=== PATIENT | male | born 1985 | race Caucasian/White ===

== ENCOUNTER 2020-09-07 10:51 | Emergency (ER) | payer SELFPAY ==
[~2020-09-07] VITALS: Wt 77.1 kg
[2020-09-07] MEDS ORDERED: Motrin,Rufen800 MG PO (14:07)
== END 2020-09-07 14:07 | disposition home or self-care (01) ==
LOC: ED 10:51
DX: S39.012A Strain of muscle, fascia and tendon of lower back, initial encounter (principal); F17.200 Nicotine dependence, unspecified, uncomplicated; X58.XXXA Exposure to other specified factors, initial encounter; Y93.89 Activity, other specified; Y92.89 Other specified places as the place of occurrence of the external cause; Y99.8 Other external cause status

== ENCOUNTER → 2020-09-12 | Outpatient (CLI) | payer SELFPAY ==
[~2020-09-12] MED LIST: Motrin,Rufen800 MG PO
== END | disposition home or self-care (01) ==
LOC: COVID19 11:13
PROVIDERS: ATTEND Internal Medicine
DX: Z11.52 Encounter for screening for COVID-19 (principal)

== ENCOUNTER 2020-11-28 10:42 | Emergency (ER) | payer SELFPAY ==
[~2020-11-28] VITALS: Ht 187.9 cm; Wt 77.1 kg
== END 2020-11-28 11:16 | disposition home or self-care (01) ==
LOC: ED 10:42
DX: S16.1XXA Strain of muscle, fascia and tendon at neck level, initial encounter (principal); Z79.899 Other long term (current) drug therapy; W01.0XXA Fall on same level from slipping, tripping and stumbling without subsequent striking against object, initial encounter; Y93.89 Activity, other specified; Y92.89 Other specified places as the place of occurrence of the external cause; Y99.8 Other external cause status

== ENCOUNTER 2021-03-27 13:00 | Emergency (ER) | payer SELFPAY ==
[~2021-03-27] VITALS: Ht 187.9 cm; Wt 72.6 kg
[2021-03-27] MEDS ORDERED: PREDNISONE50 MG PO (13:20)
[2021-03-27] MEDS ORDERED: CYCLOBENZAPRINE10 MG PO (13:20)
== END 2021-03-27 14:05 | disposition home or self-care (01) ==
LOC: ED 13:00
DX: M54.41 Lumbago with sciatica, right side (principal); Z79.899 Other long term (current) drug therapy

== ENCOUNTER 2022-07-23 12:13 | Emergency (ER) | payer SELFPAY ==
[~2022-07-23] VITALS: Ht 187.9 cm; Wt 77.1 kg
[~2022-07-23 12:13] MED LIST changes: +CYCLOBENZAPRINE10 MG PO; +PREDNISONE50 MG PO
[2022-07-23] MEDS ORDERED: AMOXICILLIN875 MG PO (12:52)
[2022-07-23] MEDS ORDERED: Motrin,Rufen800 MG PO (12:52)
== END 2022-07-23 13:05 | disposition home or self-care (01) ==
LOC: ED 12:13
DX: K08.89 Other specified disorders of teeth and supporting structures (principal)

== ENCOUNTER 2022-08-20 14:15 | Emergency (ER) | payer SELFPAY ==
[~2022-08-20] VITALS: Ht 187.9 cm; Wt 77.1 kg
[~2022-08-20 14:15] MED LIST changes: +AMOXICILLIN875 MG PO
== END 2022-08-20 16:25 | disposition left against medical advice (07) ==
LOC: ED 14:15
DX: M62.838 Other muscle spasm (principal); M25.511 Pain in right shoulder